=== PATIENT | male | born 1985 | race Caucasian/White ===

== ENCOUNTER 2018-07-21 04:00 | Emergency (ER) | payer OTHER ==
[~2018-07-21 04:00] MED LIST: ALB0.5 INH; AUG875 PO; BACL-1 PO; DICL-195 PO; FLUTR; GABA-549 PO; HYDR473S4 PO; IBU800 PO; METH4TAB66 PO; ONDA4TAB PO; OXYC-823 PO; PRE20 PO
[2018-07-21] MEDS ORDERED: DULO60CA7 PO (04:09)
--- NOTE | 2018-07-21 04:13 | ER Report ---
History and Physical Time Seen By MD: 04:09 Hx. of Stated Complaint: PT STEPPED ON [place] NAIL WHILE FISHING YESTERDAY AROUND 1900. HPI/ROS CHIEF COMPLAINT: foot puncture wound HISTORY OF PRESENT ILLNESS: This is a 32 year old male. He stepped on a carola nail while fishing, last night about 1900 hours. Increasing pain. Last tetanus was about 8 years ago. wearing CAT boots. Allergies: Coded Allergies: No Known Drug Allergies (Verified , 07/21/18) Home Meds Active Scripts Amoxicillin/Pot Clav 875-125 Mg Tab (AUGMENTIN 875-125 TABLET) 1 Each Tablet, 1 TAB PO Q12H for 10 Days, #20 TAB 0 Refills Prov:IZABELLA WHITE MD 07/21/18 Reported Medications Duloxetine HCl (Duloxetine HCl) 60 Mg Capsule.dr, 1 CAP PO QDAY 07/21/18 Discontinued Reported Medications Oxycodone Hcl (OXYCONTIN) 10 Mg Tab.er.12h, 5 MG PO Q4H, TAB 10/20/17 Gabapentin (GABAPENTIN) 300 Mg Capsule, 300 MG PO TID, CAPSULE 10/20/17 Reviewed Nurses Notes: Yes Hx Substance Use Disorder: No Hx Alcohol Use: Yes (during fb games) Constitutional Vital Sign - Last 24 Hours 07/21/18 07/21/18 07/21/18 07/21/18 04:04 04:05 04:06 04:15 Temp 97.6 Pulse 92 86 Resp 20 B/P (MAP) 144/129 (134) 137/114 137/114 (122) Pulse Ox 92 95 O2 Delivery Room Air 07/21/18 07/21/18 07/21/18 04:30 05:00 05:02 Pulse 90 B/P (MAP) 136/108 (117) Pulse Ox 94 94 Physical Exam General: Alert, having anxiety and distress from pain. Skin: Puncture, midfoot, left, near the 3rd mtp joint, plantar surface, inflammation and pain. no drainage. Musculoskeletal: Pain with weight bearing. Neuro: normal sensation. Cardio: Normal cap refill in the foot/toes. Medical Decision Making ED Course/Re-evaluation ED Course Tetanus booster given. Numbing of the puncture site with 1% lidocaine without epinephrine and 0.5% bupivacaine without epinephrine. Wound irrigated and cleaned. Started on Augmentin. Decision to Disposition Date: Jul 21, 2018 Decision to Disposition Time: 04:54 Depart Departure Latest Vital Signs Vital Signs Date Time Temp Pulse Resp B/P (MAP) Pulse Ox O2 Delivery O2 Flow Rate FiO2 07/21/18 05:02 136/108 (117) 07/21/18 05:00 94 07/21/18 04:30 90 07/21/18 04:05 97.6 20 Room Air Impression: Primary Impression: Puncture wound of foot Condition: Improved Disposition: HOME OR SELF-CARE New Scripts Amoxicillin/Pot Clav 875-125 Mg Tab (AUGMENTIN 875-125 TABLET) 1 Each Tablet 1 TAB PO Q12H for 10 Days, #20 TAB 0 Refills Prov: IZABELLA WHITE MD 07/21/18 Patient Instructions: Puncture Wound (ED) Additional Instructions: Take the antibiotic Augmentin 875/125 twice a day for 10 days. Foot soaks twice daily in Epsom salts, then dry the foot and apply some antibiotic ointment and a bandage. Try to keep the foot wound clean. Ibuprofen 200mg over the counter tablets, take 4 tablets every 8 hours as needed for pain. Problem Qualifiers Primary Impression: Puncture wound of foot Encounter type: initial encounter Laterality: left Qualified Codes: S91.332A - Puncture wound without foreign body, left foot, initial encounter IZABELLA WHITE MD Jul 21, 2018 04:13
[2018-07-21] MEDS ORDERED: DIPHTH/TETANUS/ACEL. PERTUSSIS IM ONLY ONE (04:15)
[2018-07-21] MEDS ORDERED: APAP/HYDROCODONE 325/5 TAB PO ONE (04:15)
[2018-07-21] MEDS ORDERED: AMOX-559 PO (04:55)
[2018-07-21] MEDS ORDERED: AMOX/CLAV 875 MG TAB PO ONE (05:00)
[2018-07-21 05:02] VITALS: BP 136/108
== END 2018-07-21 05:10 | disposition home or self-care (01) ==
LOC: ER 04:11
DX: S91.332A Puncture wound without foreign body, left foot, initial encounter (principal); W45.0XXA Nail entering through skin, initial encounter
CPT/HCPCS: 90471; 90715; 99283